=== PATIENT | female | born 1950 | race Caucasian/White ===

== ENCOUNTER 2025-01-27 00:49 | Observation (INO) | payer MEDICARE, OTHER ==
[~2025-01-27] VITALS: Ht 167.6 cm; Wt 72.2 kg
[~2025-01-27 00:49] MED LIST: HYDR-4353 PO; VIT1TABL91 PO
[2025-01-27 01:18] LABS: MEAN PLATELET VOLUME 8.3 FL (7.4-10.4); RED CELL DISTRIBUTION WIDTH 13.8 % (11.5-14.5)
[2025-01-27 01:34] LABS: CREATININE 0.81 MG/DL (0.40-0.90); TOTAL CARBON DIOXIDE 29.4 MMOL/L (24-32); eCRCL 55 ML/MIN; eGFR 69 ML/MIN
--- NOTE | 2025-01-27 01:52 | Physician Documentation ---
History of Present Illness ~ Chief Complaint: Abdominal Pain Stated Complaint: ABD PAIN Time Seen by MD: 01:44 Primary Medical Doctor: TEDDY Mode of Arrival: POV HPI Patient presents to the emergency room for evaluation of abdominal pain for which she states feels similar to previous pancreatitis. She has had a proximally eight bouts of pancreatitis in her life and she states they have never been able to find out what it is caused it. She is status post cholecystectomy and does not endorse any significant amount of alcohol. No fevers. She does have history of aortic stent in did report that her doctor says that has a small leaking it however he was not concern. Medication Reconciliation Allergies: Coded Allergies: morphine (Verified Allergy, Unknown, 08/01/14) Uncoded Allergies: ERYTHROMYCIN (Allergy, Unknown, 02/13/14) Scheduled Aspirin (Aspirin EC), 1 TAB PO DAILY, (Reported) Atorvastatin Calcium (Atorvastatin Calcium), 1 TAB PO DAILY, (Reported) Lidocaine (Lidoderm), 1 PATCH TOP DAILY Lisinopril (Lisinopril), 1 TAB PO BID, (Reported) Metoprolol Tartrate (Metoprolol Tartrate), 1 TAB PO BID, (Reported) Pantoprazole Sodium (Pantoprazole Sodium), 40 MG PO BKF Discontinued Medications Hydrocodone Bit/Acetaminophen ([place] 10-325 Tablet), 1 TAB PO Q6H PRN for pain Discontinued Reason: patient no longer taking Vit D3/Folic Acid/B2/B6/B12 (Folgard Tablet), 1 EACH PO, (Reported) Discontinued Reason: patient no longer taking Past Medical History Past Medical History: No Pertinent History Past Surgical History: noncontributory Alcohol Use: Occasionally Drug Use: none Lives with: Family Lives In: Home Occupation: retired Review of Systems ROS All review of systems negative except as per HPI Physical Exam Vital Signs: Temperature: 99.1, Source: Temporal, Heart Rate: 76, Respiratory Rate: 16, BP: 204/94, Pulse Oximetry: 97, Weight: 72.250 Oxygen Flow Rate: 0 Physical Exam General: Patient is awake, alert, oriented x4 in no acute distress Head: Normocephalic and atraumatic. Eyes: Conjunctival normal. EOMI. PERRL. ENT: Mucous membranes moist. Neck: Supple, trachea is midline. Chest: Clear to auscultation bilaterally without rales, rhonchi, or wheezes. There is no accessory muscle use or retractions. Cardiac: RRR without murmurs, gallops, or rubs. Abd: Soft, nondistended, mild diffuse tenderness to palpation without peritonitis Progress Results/Orders Results/Orders Orders - PIOTR SOLANO MD Cta Aortagram (01/27/25 02:00) Cta Aorta Disection (01/27/25 02:30) Page Hospitalist (01/27/25 04:29) Fill Out Med Reconciliation (01/27/25 04:29) Completed Orders - PIOTR SOLANO MD Cbc/Diff (01/27/25 00:53) BMP (01/27/25 00:53) Lipase (01/27/25 00:53) CMP (01/27/25 00:53) Fentanyl/Pf (Fentanyl 0.05 Mg/Ml Syringe (01/27/25 02:00) Ondansetron Inj. (Zofran 4mg/2ml Vial) (01/27/25 02:00) Ua W/Microscopic, Cult If Ind (01/27/25 01:29) Hydralazine Inj. (Apresoline Inj.) (01/27/25 02:10) Cta Aorta Disection (01/27/25 02:30) Iohexol 350mg/Ml 100ml (Omnipaque 350mg/ (01/27/25 02:49) Fentanyl/Pf (Fentanyl 0.05 Mg/Ml Syringe (01/27/25 04:15) Ketorolac Trometh 15mg/Ml Vial (Toradol (01/27/25 04:35) MG (01/27/25 00:58) Vital Signs 01/27/25 01/27/25 01/27/25 01/27/25 00:54 01:10 01:10 02:13 Temp 99.1 Pulse 79 76 73 Resp 18 16 16 B/P (MAP) 207/102 204/94 (130) Pulse Ox 96 97 O2 Flow Rate 0 01/27/25 01/27/25 01/27/25 01/27/25 02:15 02:29 02:34 03:26 Pulse 61 65 Resp 18 14 14 16 B/P (MAP) 123/79 (94) 147/70 (95) Pulse Ox 96 95 01/27/25 01/27/25 01/27/25 01/27/25 04:13 04:18 04:37 05:03 Pulse 67 Resp 16 16 14 16 B/P (MAP) 180/71 (107) Pulse Ox 95 01/27/25 01/27/25 05:03 05:05 Pulse 60 Resp 16 14 B/P (MAP) 128/54 (78) Pulse Ox 94 Laboratory Tests Test 01/27/25 00:58 01/27/25 01:29 White Blood Count 9.2 Red Blood Count 4.19 L Hemoglobin 14.3 Hematocrit 41.8 Mean Corpuscular Volume 99.9 H Mean Corpuscular Hemoglobin 34.2 H Mean Corpuscular Hemoglobin Concent 34.2 Red Cell Distribution Width 13.8 Platelet Count 255 Mean Platelet Volume 8.3 Neutrophils (%) (Auto) 69.9 Lymphocytes (%) (Auto) 19.6 L Monocytes (%) (Auto) 8.6 Eosinophils (%) (Auto) 0.9 Basophils (%) (Auto) 1.0 Neutrophils # (Auto) 6.4 Lymphocytes # (Auto) 1.8 Monocytes # (Auto) 0.8 Eosinophils # (Auto) 0.1 Basophils # (Auto) 0.1 CBC Comment Sodium Level 135 Potassium Level 3.9 Chloride Level 101 Carbon Dioxide Level 29.4 Anion Gap 5 L Blood Urea Nitrogen 5 L Creatinine 0.81 Estimated GFR/1.73 m2 69 BUN/Creatinine Ratio 6.2 L Glucose Level 125 H Calcium Level 9.0 Magnesium Level 2.2 Total Bilirubin 0.5 Aspartate Amino Transf (AST/SGOT) 21 Alanine Aminotransferase (ALT/SGPT) 24 Alkaline Phosphatase 101 Total Protein 7.2 Albumin 3.8 Globulin 3.4 Albumin/Globulin Ratio 1.1 Lipase 80 H Procalcitonin < 0.05 Chemistry Comments Urine Specimen Description Cln catch midstream Urine Color Yellow Urine Clarity Clear Urine pH 7.0 Urine Specific [place]ow <=1.005 Urine Protein Negative Urine Glucose (UA) Negative Urine Ketones Negative Urine Occult Blood Small Urine Nitrite Negative Urine Bilirubin Negative Urine Urobilinogen 0.2 Urine Leukocyte Esterase Negative Urine RBC 3-10 Urine WBC 0-4 Urine Squamous Epithelial Cells Many Urine Transitional Epithelial Cells Few Urine Bacteria Few Urine Mucus Urine Culture Indicated Not ind Volume Urine Centrifuged 10 ml Urine Comment Medical Decision Making Findings Patient presents to the emergency room for evaluation of abdominal pain. Differentials include but are not limited to small-bowel obstruction, pancreatitis, cholecystitis, appendicitis, diverticulitis therefore emergent labs and imaging indicated. CT scan is reassuring. Labs are reassuring. Of concern is patient's significant abdominal pain she continues to have 8/10 pain despite opioid administration. We will admit for further investigation/pain control. Departure Admitted to Inpatient Unit: yes, to hospitalist Impression: Primary Impression: Intractable pain Condition: Guarded Referrals: NO PRIMARY CARE PROVIDER (PCP) Prescriptions Lidocaine (Lidoderm) 5 % Adh..patch 1 PATCH TOP DAILY for 30 Days, #30 PATCH 0 Refills may wear up to 12 hours Prov: MARK ANDRADE RES 01/27/25 Pantoprazole Sodium (Pantoprazole Sodium) 40 Mg Tablet.dr 40 MG PO BKF for 30 Days, #30 TAB.SR Prov: MARK ANDRADE RES 01/27/25 Signature Scribe Signature: No scribe Attestation: The note accurately reflects work and decisions made by me.Piotr Solano MD 01/27/25 04:33 PIOTR SOLANO MD Jan 27, 2025 01:52
[2025-01-27 01:59] LABS: LEUKOCYTE ESTERASE ,URINE NEGATIVE (Neg); NITRITES, URINE NEGATIVE (Neg); OCCULT BLOOD,URINE SMALL (Neg)
[2025-01-27 02:02] LABS: UA COLLECTION TYPE CLN CATCH MIDSTREAM
[2025-01-27 02:06] LABS: SQUAMOUS EPITHELIAL CELL,UR MANY /LPF (FEW)
[2025-01-27] MEDS: ondansetron/PF 4mg/2ml inj IV ONE (02:10)
[2025-01-27] MEDS: hydrALAZINE 20mg/ml inj. IV ONE (02:13)
[2025-01-27] MEDS: fentaNYL/PF 50MCG/1 ML 2ML syringe IV ONE ×2 (02:15→04:18)
--- NOTE | 2025-01-27 03:48 | RADIOLOGY REPORT ---
History: abd pain Comparison: None TECHNIQUE: Using a slice CT scanner volumetric data acquisition of chest, abdomen and pelvis was obta ined following intravenous administration of intravenous 100 ml contrast without any reported adverse effects. Axial images were reconstructed and additional sagittal and coronal images were reformatted . 3D/MIP images were performed and reviewed for reporting. Radiation Dose Information: CT Dose: CTDI volume is 18.89 mGy. Dose-length product is 1317.04 mGy*cm Findings: Vascular: Aortic measurements: Aortic annulus 33 mm, ascending aorta 31 mm (coronal plane), aortic arch 24 mm sagittal plane, descending aortar 26 mm, aortic hiatus 23 mm, suprarenal abdominal aorta 19 mm and i nfrarenal aorta 16 mm.) Atherosclerotic vascular calcifications. Aorto bi-iliac stent graft extends from the infrarenal abdom inal aorta through the bilateral common iliac arteries. The maximum anteroposterior dimension of the aneurysm aortic sac is 4.6 cm. There is otherwise normal caliber of thoracic and abdominal aorta with out evidence of aortic dissection, intramural hematoma or acute aneurysm. Visualized supra-aortic art eries are widely patent without a focal stenosis or aneurysm. The mesenteric, and bilateral renal, il iac and femoral arteries are widely patent without any focal stenosis or aneurysm. Chest: Pulmonary Arteries: There are no filling defects within main pulmonary arteries. There is normal dim ensional of main PA, measuring 2.9 cm. The bilateral pulmonary arteries are mildly dilated, measuring 2.8 cm on the left and 3.4 cm on the right. Lungs: There is no peripheral pulmonary infarction, consolidation, pleural effusion, or right heart s train. There is no pneumothorax or pneumomediastinum. Aorta: There is normal caliber of thoracic aorta without evidence of aortic dissection, intramural he matoma or aneurysm. Lymph Nodes: There is no significant intrathoracic or axillary lymphadenopathy on CT size criteria. Lower Neck: Visualized portions of the thyroid gland are unremarkable. Mediastinum: Heart size is normal. There is no pericardial effusion. Musculoskeletal: No aggressive focal bony lesions, acute fractures or dislocation. Chest wall: Unremarkable Abdomen and Pelvis: Liver: The liver is normal in size. No focal lesions. Normal hepatic vascular enhancement. Gallbladder and Biliary Tree: Status post cholecystectomy. Spleen: Unremarkable Pancreas: The pancreas is normal in appearance without focal lesions or abnormal enhancement. Adrenal Glands: Unremarkable Kidneys: Kidneys demonstrate normal symmetric enhancement without focal lesions, calculi or hydroneph rosis. Bladder: Unremarkable Bowel: The stomach is grossly normal in appearance. Small bowel and colon are normal in caliber and d istribution. The appendix is normal. Ascites: Absent Lymphadenopathy: No mesenteric, retroperitoneal or periportal lymphadenopathy. Abdominal Wall and Mesentery: Unremarkable. Vasculature: The visualized abdominal aorta is normal in size and caliber. Abdominal and pelvic vesse ls demonstrate normal enhancement. Pelvic Organs: Unremarkable Musculoskeletal: No aggressive focal bony lesions, acute fractures or dislocation. Hardware within th e right hip status post arthroplasty with associated beam hardening artifact which partially obscures the findings of the pelvis. IMPRESSION: 1. Infrarenal abdominal aortic aneurysm status post aorto bi-iliac stent graft without evidence of co mplication. No evidence of acute aneurysm or aortic dissection. 2. No evidence of pulmonary embolism. Dilated bilateral pulmonary arteries measuring up to 3.4 cm on the right and 2.8 cm on the left. All CT scans at this medical facility are performed using dose modulation techniques as appropriate t o a performed exam including the following: Automated exposure control was utilized; adjustment of th e MA and/or KV according to patient size; and use of iterative reconstruction technique.
[2025-01-27] MEDS: ketorolac trometh 15mg/ml vial 15 MG/ML ML IV ONE (04:37)
[2025-01-27] MEDS ORDERED: mag hydrox/Alum hydrox/simeth 30ml oral suspension PO PRN (05:35)
[2025-01-27] MEDS ORDERED: ondansetron/PF 4mg/2ml inj IV PRN (05:35)
[2025-01-27] MEDS ORDERED: potassium Cl 40MEQ/1/2NS 520ml 520 ML IV PRN (05:35)
[2025-01-27] MEDS ORDERED: potassium Cl 20 mEq SR tablet PO PRN ×2 (05:35)
[2025-01-27] MEDS ORDERED: magnesium Cl slow-release 64mg tablet PO PRN (05:35)
[2025-01-27] MEDS ORDERED: magnesium sulf-water 2g/50mL 50 ML IV PRN (05:35)
[2025-01-27] MEDS ORDERED: magnesium sulf-water 4G/100mL 100 ML IV PRN (05:35)
[2025-01-27] MEDS ORDERED: HYDROmorphone inj. 0.5 MG/0.5 ML DISP.SYRIN IV PRN (05:45)
[2025-01-27] MEDS ORDERED: ipratropium/albuterol 3ml nebule NEB PRN (05:50)
--- NOTE | 2025-01-27 05:56 | HISTORY AND PHYSICAL-Residence ---
History & Physical Providers to CC Resident Creating Document: BELLA SCHOFIELD RES ~ History of Present Illness Primary Medical Doctor: TEDDY Reason for Admit\Complaint: Intractable abd pain History of Present Illness 74-year-old female with history of hypertension, COPD presented to the ED with chief complaints of worsening abdominal pain for the past one week. Generalized abdominal pain mainly in the upper quadrants, associated with upper back pain as well. She thought that the pain was similar to previous episodes of pancreatitis and hence was concerned. Has history of 7 episodes of pancreatitis in the past, last episode was last year. States the episode of pancreatitis were post surgeries that she had in the past. Abdominal pain is associated with dry heaving and nausea. Denies vomiting, fever, chills, constipation, shortness of breath, palpitations or chest pain. She has chronic bowel issues and has been having [id number] stools. She had a colonoscopy done in early 2024 and was diagnosed to have microscopic colitis. Chronic smoker more than half a pack of cigarettes a day for the past 50 years. Stopped drinking a year ago used to drink beer regularly. No recreational drugs. Discussed advanced care directives and wishes to be a full code. Allergies: Coded Allergies: morphine (Verified Allergy, Unknown, 08/01/14) Uncoded Allergies: ERYTHROMYCIN (Allergy, Unknown, 02/13/14) Home Medications Home Medications Active [place] 10-325 Tablet (Acetaminophen/Hydrocodone Bitart) 1 Each Tablet 1 Tab PO Q6H PRN Reported Folgard Tablet (Vit D3/Folic Acid/B2/B6/B12) 1 Each Tablet 1 Each PO Past Medical History Past Medical History Hypertension Hyperlipidemia COPD Pancreatitis Past Surgical History Surgical History Comment Aortic aneurysm repair Right Breast cancer status post surgery in remission Carpal tunnel surgery Cholecystectomy Hip replacement Ganglion cyst of the thumb Cataract surgeries Past Social History Smoking: Cigarettes Alcohol Use: Occasionally Drug Use: None Lives with: Family Lives In: Home Occupation: retired ROS ROS Reviewed in full. All negative except for pertinent positive HPI. Exam Vitals: Vital Signs Date Time Temp Pulse Resp B/P (MAP) Pulse Ox O2 Delivery O2 Flow Rate FiO2 01/27/25 05:05 60 14 128/54 (78) 94 01/27/25 00:54 99.1 0 General: General: Awake and Alert, no acute distress. HEENT: Conjunctiva pink, Sclera clear, Mucus Membranes moist. Neck: Supple without masses and tenderness. Resp: Unlabored. Diminished breath sounds. Heart: Regular rhythm, normal S1 and S2, no rub, murmur or gallop. Abdomen: Soft, mild tenderness to deep palpation in the right upper and lower quadrants. Normal bowel sounds x4 quadrant normoactive. No guarding or rigidity. Extremities: Normal ROM, no swelling, nontender. No cyanosis,clubbing or edema. 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 Skin: Warm and Dry. Diagnostic Data Last Recorded Lab Results: 01/27/258 01/27/2557 Advance Care Planning Advanced Care plannin - 30 Minutes Additional Plan 74-year-old female with history of hypertension, COPD presented to the ED with chief complaints of worsening abdominal pain for the past one week. Intractable abdominal pain, cause unknown at this time Likely flare-up of chronic pancreatitis She states she has had episodes of pancreatitis and was concerned with the pain was similar to the previous episodes Denies vomiting, fever, chills Received Toradol and fentanyl in the ED Currently pain is 6/10 Vitals stable WBCs within normal limits, follow up with procalcitonin CT abdomen pelvis with IV contrast: Pancreas is normal in appearance without focal lesions or abnormal enhancement. Small bowel and colon normal in caliber and distribution. Post surgical changes noted without complications. Continue IV fluids NS at 100 mL/hour Pain medications Toradol and Dilaudid p.r.n. History of hypertension History of COPD not in exacerbation breathing treatments p.r.n. Awaiting med rec Code Status: Full code DVT prophylaxis: Lovenox Analgesia/sedation: Dilaudid Line/tube: PIV GI prophylaxis: Protonix Nutrition: Regular diet Prognosis: Guarded Disposition: Continue medical management. Bella Schofield MD. IM Resident PGY-3 Plan reviewed with bedside team. Patient seen through remote audiovisual assessment through HIPAA compliant setup. All labs, flowsheets, and images reviewed Cumulative nonprocedural care time spent in directed patient care = 30 min Date of Service: Jan 27, 2025 Billing Provider: MICHAEL ALTAMIRANO MD, ELIZABETH, KEVIN Jan 27, 2025 05:55 MICHAEL ALTAMIRANO MD Jan 27, 2025 07:26
[2025-01-27] MEDS: pantoprazole 40mg Tablet.DR PO SCH (06:06)
[2025-01-27] MEDS: normal saline 1000ml 1,000 ML IV SCH (06:06)
[2025-01-27] MEDS: nicotine 21mg patch - 24 hr TD SCH (06:08)
[2025-01-27] MEDS ORDERED: HYDROcodone/acetaminophen 10/325mg tab PO PRN (08:00)
[2025-01-27] MEDS: K and/or MAG REPLACEMENT MC SCH (08:00)
[2025-01-27] MEDS ORDERED: HYDROcodone/acetaminophen 5mg/325mg tablet PO PRN (08:00)
[2025-01-27] MEDS: enoxaparin 40mg/0.4ml syringe SUBCUT SCH (08:11)
[2025-01-27 08:35] VITALS: PULSE 55; RESP 16; O2SAT 95
[2025-01-27] MEDS: ketorolac trometh 15mg/ml vial 15 MG/ML ML IV PRN (11:18)
[2025-01-27 12:09] VITALS: BP 141/48; PULSE 56; RESP 14; TEMP 97.6; O2SAT 97
[2025-01-27] MEDS ORDERED: LISI20TA28 PO (12:13)
[2025-01-27] MEDS ORDERED: ATOR40TA72 PO (12:13)
[2025-01-27] MEDS ORDERED: METO25TA6 PO (12:13)
[2025-01-27] MEDS ORDERED: ASPI81TA52 PO (12:13)
[2025-01-27] MEDS ORDERED: LIDO-52 TOP (12:37)
[2025-01-27] MEDS ORDERED: PANT40TA54 PO (12:37)
--- NOTE | 2025-01-27 13:33 | DISCHARGE SUMMARY-Residence ---
Discharge Summary Providers to CC Resident Creating Document: MARK ANDRADE RES CC: ROMAINE MARIE MD ~ Discharge Summary Assessment 74-year-old female with history of hypertension, COPD presented to the ED with chief complaints of worsening abdominal pain for the past one week Admission Diagnosis: ABD PAIN Hospital Course DATE OF ADMISSION: 01/27/25 DATE OF DISCHARGE: 01/27/2025 Discharge Diagnosis\Comment: Hypertension Hyperlipidemia COPD-exacerbation chronic Pancreatitis Acute Gastritis/GERD chronic back pain Microscopic colitis Right breast cancer status post surgery currently in remission Operations\Procedures: none Consultants: none Complications: none Condition on DC: Stable New Medications: Lidocaine (Lidoderm) 5 % Adh..patch 1 PATCH TOP DAILY for 30 Days, #30 PATCH 0 Refills may wear up to 12 hours Pantoprazole Sodium (Pantoprazole Sodium) 40 Mg Tablet.dr 40 MG PO BKF for 30 Days, #30 TAB.SR Continued Medications: Aspirin (Aspirin EC) 81 Mg Tablet.dr 1 TAB PO DAILY, TAB Atorvastatin Calcium (Atorvastatin Calcium) 40 Mg Tablet 1 TAB PO DAILY Lisinopril (Lisinopril) 20 Mg Tablet 1 TAB PO BID Metoprolol Tartrate (Metoprolol Tartrate) 25 Mg Tablet 1 TAB PO BID Discharge Summary: 74-year-old female with history of hypertension, COPD presented to the ED with chief complaints of worsening abdominal pain for the past one week Hospital course -and was admitted for evaluation of abdominal pain. Her lipase were normal, CMP was normal. CT abdomen with IV contrast showed no wall pancreas, normal small bowel and colon, and postsurgical changes. He had history of aortic aneurysm with stent placement and CT abdomen did not show any stent thrombosis or aortic dissection. On further obtaining symptoms from the patient it looks like patient might be having acid reflux and was started on IV Protonix. Patient's symptoms were relieved and we discussed with her and her daughter regarding the back pain and to follow up with her cancer doctor. She is hemodynamically stable at the time of discharge and her physical condition is as follows General: Awake and Alert, no acute distress. HEENT: Conjunctiva pink, Sclera clear, Mucus Membranes moist. Neck: Supple without masses and tenderness. Resp: Unlabored. Diminished breath sounds. Heart: Regular rhythm, normal S1 and S2, no rub, murmur or gallop. Abdomen: Soft, mild tenderness to deep palpation in the right upper and lower quadrants. scar present over the abdomen Normal bowel sounds x4 quadrant normoactive. No guarding or rigidity. Extremities: Normal ROM, no swelling, nontender. No cyanosis,clubbing or edema. 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 Skin: Warm and Dry. Labs at discharge -CBC-H and H 14/41, WBC 9.2, platelets 255 -BMP- sodium 135, potassium 3.9, BUN five, creatinine 0.81, blood glucose 125, lipase 80, procalcitonin normal Chest/thorax CTA/ abdomen IMPRESSION: 1. Infrarenal abdominal aortic aneurysm status post aorto bi-iliac stent graft without evidence of complication. No evidence of acute aneurysm or aortic dissection. 2. No evidence of pulmonary embolism. Dilated bilateral pulmonary arteries measuring up to 3.4 cm on the right and 2.8 cm on the left. Discharge medications can be found above and she is sent home with the following recommendations Please follow up with [facility] urgent [facility] care while you are in [place] f/u with your pcp in [place] regarding weight loss we prescribed you protonix for acid reflux and lidocaine patches for pain avoid coffee, alcohol and spicy foods, recommended to quit smoking return to the ER in case of any recurrence of symptoms *Problems/Diagnosis: (1) GERD (gastroesophageal reflux disease) Total Time Spent on D/C: > 30 Minutes Counseling Services Smoking & Tobacco Cessation: > 10 Minutes (patient is given counseling to stop smoking and explained the risk of lung cancer and she understood the risks) Date of Service: Jan 27, 2025 Billing Provider: ROMAINE MARIE MD Common Visit Codes: 71750-OTG/OBS DISCH DAY >30min MARK ANDRADE, RES Jan 27, 2025 13:30 ROMAINE MARIE MD Feb 16, 2025 14:49
[2025-01-28] MEDS ORDERED: aspirin 81mg, enteric-coated 1 TAB TABLET.DR PO SCH (08:00)
== END 2025-01-27 13:59 | disposition home or self-care (01) ==
LOC: ER 00:50 → ED HOLD 05:51 → ORTHO 4S 11:59
PROVIDERS: ADMIT Internal Medicine Critical Care Medicine; ATTEND Family Medicine
DX: K21.9 Gastro-esophageal reflux disease without esophagitis (principal); K52.839 Microscopic colitis, unspecified; I10 Essential (primary) hypertension; J44.1 Chronic obstructive pulmonary disease with (acute) exacerbation; G89.29 Other chronic pain; M54.6 Pain in thoracic spine; E78.5 Hyperlipidemia, unspecified; K86.1 Other chronic pancreatitis; F17.210 Nicotine dependence, cigarettes, uncomplicated; Z79.899 Other long term (current) drug therapy; Z90.49 Acquired absence of other specified parts of digestive tract; Z88.5 Allergy status to narcotic agent; Z85.3 Personal history of malignant neoplasm of breast
CPT/HCPCS: 71275; 74174; 80053; 81001; 83690; 83735; 84145; 94760; 96361; 96372; 96374; 96375; 99285; G0378; 36415; 85025; 87081; 96376; J0360; J1650; J1885; J2405; J3010; J7030; Q9967